=== PATIENT | female | born 1980 | race Caucasian/White ===

== ENCOUNTER 2017-03-01 08:01 | Emergency (ER) | payer OTHER ==
[2017-03-01] MEDS ORDERED: NEXIUM40 M1 PO ×2 (08:12→13:47)
[2017-03-01] MEDS ORDERED: ZOFRAN ODT4 MG PO ×2 (08:12→13:47)
[2017-03-01 08:34] LABS: HEMOGLOBIN 13.5 g/dl (12.0-16.0); IMMATURE GRANULOCYTES 0.5 % (0.0-1.0); MEAN CELL VOLUME 90.3 fL CALC (80.0-100.0); MEAN CORPUSCULAR HGB 30.5 pG CALC (26.0-32.0); MEAN CORPUSCULAR HGB CONC 33.8 g/L CALC (32.0-36.0); NEUT# 12.87 thou/uL (2.00-7.15); RED BLOOD COUNT 4.43 mill/uL (4.20-5.60); RED CELL DISTRI WIDTH 13.2 % (11.5-15.5)
[2017-03-01] MEDS ORDERED: METHADONE40 MG PO (08:44)
[2017-03-01 08:45] LABS: ALBUMIN 4.8 g/dL (3.2-5.0); ALKALINE PHOSPHATASE 120 u/l (38-126); AMYLASE 57 u/l (30-110); ANION GAP 18 (6-22 (CALC)); BILIRUBIN, TOTAL 0.4 mg/dL (0.0-1.4); BUN 12 mg/dL (7-17); BUN/CREATININE RATIO 13 (12-20 (CALC)); CALCIUM 9.8 mg/dL (8.4-10.2); CARBON DIOXIDE 23 mmol/l (22-30); CHLORIDE 106 mmol/l (95-108); CREATININE 0.9 mg/dL (0.5-1.0); GFR > 60 ML/MIN (>=60 (CALC)); GFR FOR AFR.AMER. > 60 ML/MIN (>=60 (CALC)); GLUCOSE 135 mg/dL (65-105); LIPASE 52 u/l (23-300); SGOT/AST 30 u/l (14-36); SGPT/ALT 36 u/l (9-52); SODIUM 143 mmol/l (137-146); TOTAL PROTEIN 7.4 g/dL (6.3-8.2)
[2017-03-01 09:11] LABS: MYOGLOBIN 2070 ng/mL (0 - 62)
[2017-03-01 09:16] LABS: URINE BILIRUBIN - DIPSTICK NEGATIVE (NEGATIVE); URINE BLOOD DIPSTICK SMALL (NEGATIVE); URINE CLARITY SL CLOUDY; URINE COLOR YELLOW; URINE GLUCOSE - DIPSTICK NEGATIVE (NEGATIVE); URINE KETONE 15 mg/dL (NEGATIVE); URINE LEUK ESTERASE TRACE (NEGATIVE); URINE NITRITE - DIPSTICK NEGATIVE (Negative); URINE PROTEIN - DIPSTICK NEGATIVE (NEG-TRACE); URINE SPECIFIC GRAVITY >=1.030; URINE UROBILINOGEN - DIPSTICK 0.2 E.U./dL (0.2)
[2017-03-01 09:24] LABS: URINE MUCUS MODERATE hpf (NONE-FEW); URINE SQUAMOUS EPITHELIAL CELL MODERATE EPI/hpf (0-FEW)
[2017-03-01 09:34] LABS: BARBITURATES NEGATIVE (NEGATIVE); COCAINE NEGATIVE (NEGATIVE); METHADONE POSITIVE (NEGATIVE); OXCYCODONE NEGATIVE (NEGATIVE); TETRAHYDROCANNABIONOL NEGATIVE (NEGATIVE); TRICYLIC ANTIDEPRESSANTS NEGATIVE (NEGATIVE)
[2017-03-01 15:20] VITALS: BP 101/61
== END 2017-03-01 15:20 | disposition home or self-care (01) | DRG 392 ==
LOC: ED 08:01
PROVIDERS: Emergency Medicine
DX: R10.13 Epigastric pain (principal); F11.20 Opioid dependence, uncomplicated; F17.210 Nicotine dependence, cigarettes, uncomplicated; R11.2 Nausea with vomiting, unspecified

== ENCOUNTER 2017-08-27 20:14 | Emergency (ER) | payer OTHER ==
[~2017-08-27 20:14] MED LIST: METHADONE40 MG PO; NEXIUM40 M1 PO; ZOFRAN ODT4 MG PO
== END 2017-08-27 20:30 | disposition left against medical advice (07) | DRG 951 ==
LOC: ED 20:14 → LWOBS 20:29
DX: Z91.19 Patient's noncompliance with other medical treatment and regimen (principal)

== ENCOUNTER 2017-09-17 13:01 | Emergency (ER) | payer OTHER ==
[~2017-09-17] VITALS: Ht 152.4 cm; Wt 70.0 kg
[2017-09-17 14:03] LABS: HEMATOCRIT 36.4 % (37.0-47.0); HEMOGLOBIN 12.1 g/dl (12.0-16.0); IMMATURE GRANULOCYTES 0.4 % (0.0-5.0); MEAN CELL VOLUME 91.9 fL CALC (80.0-100.0); MEAN CORPUSCULAR HGB 30.6 pG CALC (26.0-32.0); MEAN CORPUSCULAR HGB CONC 33.2 g/L CALC (32.0-36.0); NEUT# 13.57 thou/uL (2.00-7.15); RED BLOOD COUNT 3.96 mill/uL (4.20-5.60); RED CELL DISTRI WIDTH 12.9 % (11.5-15.5)
[2017-09-17 14:04] LABS: URINE BLOOD DIPSTICK LARGE (NEGATIVE); URINE GLUCOSE - DIPSTICK NEGATIVE (NEGATIVE); URINE KETONE TRACE mg/dL (NEGATIVE); URINE NITRITE - DIPSTICK NEGATIVE (Negative); URINE PROTEIN - DIPSTICK TRACE mg/dL (NEG-TRACE); URINE SPECIFIC GRAVITY >=1.030
[2017-09-17 14:06] LABS: URINE BILIRUBIN - DIPSTICK NEGATIVE (NEGATIVE); URINE CLARITY SL CLOUDY; URINE COLOR DK. YELLOW; URINE LEUK ESTERASE SMALL (NEGATIVE)
[2017-09-17 14:12] LABS: URINE MUCUS MANY hpf (NONE-FEW); URINE SQUAMOUS EPITHELIAL CELL FEW EPI/hpf (0-FEW); URINE TRICHOMONAS FEW hpf
[2017-09-17 14:22] LABS: BARBITURATES NEGATIVE (NEGATIVE); COCAINE NEGATIVE (NEGATIVE); METHADONE POSITIVE (NEGATIVE); OXCYCODONE NEGATIVE (NEGATIVE); TETRAHYDROCANNABIONOL NEGATIVE (NEGATIVE); TRICYLIC ANTIDEPRESSANTS NEGATIVE (NEGATIVE)
[2017-09-17 16:04] VITALS: BP 121/68
== END 2017-09-17 16:04 | disposition short-term general hospital (02) ==
LOC: ED 13:01
PROVIDERS: Emergency Medicine
DX: O00.91 Unspecified ectopic pregnancy with intrauterine pregnancy (principal); F17.210 Nicotine dependence, cigarettes, uncomplicated

== ENCOUNTER 2019-01-15 13:08 | Emergency (ER) | payer SELFPAY ==
[~2019-01-15] VITALS: Ht 152.4 cm; Wt 75.0 kg
[2019-01-15 13:49] VITALS: BP 126/81
[2019-01-15] MEDS ORDERED: MEDDOSEPAK PO (14:17)
[2019-01-15] MEDS ORDERED: TESSALON PER100 MG PO (14:17)
== END 2019-01-15 14:34 | disposition home or self-care (01) | DRG 866 ==
LOC: ED 13:08
DX: B34.9 Viral infection, unspecified (principal); R05 Cough